=== PATIENT | male | born 1985 | race Caucasian/White ===

== ENCOUNTER 2018-01-11 08:33 | Emergency (ER) | payer MEDICAID ==
[~2018-01-11] VITALS: Ht 177.8 cm; Wt 77.6 kg
[2018-01-11 09:24] LABS: BASOPHIL % 0.8 % (0-2); PLATELET COUNT 235 x10^3mcL (130-400); RED CELL DISTRIBUTION WIDTH 13.1 % (11.5-14.5)
[2018-01-11 09:39] LABS: CALCIUM 8.9 mg/dL (8.5-10.1); CARBON DIOXIDE 25.2 mmol/L (21-32); CHLORIDE SERUM 104 mmol/L (98-107); GFR1 > 60 mL/min; GLUCOSE SERUM 100 mg/dL (74-106); POTASSIUM SERUM 3.8 mmol/L (3.5-5.1); SODIUM SERUM 139 mmol/L (136-145)
[2018-01-11 09:48] LABS: ALBUMIN 4.1 g/dL (3.4-5.0); ALKALINE PHOSPHATASE 161 U/L (46-116); AMYLASE 60 U/L (25-115); AST/SGOT 691 U/L (15-37); BILIRUBIN TOTAL 1.1 mg/dL (0.20-1.00); LIPASE 164 IU/L (73-393)
[2018-01-11 09:58] LABS: ALT/SGPT 1040 U/L (16-63)
[2018-01-11 10:06] VITALS: BP 124/84
[2018-01-11 10:13] LABS: AMPHETAMINE QUAL UR NONE DETECTED (NEG <=1000)
== END 2018-01-11 11:00 | disposition home or self-care (01) ==
LOC: ED 08:33
PROVIDERS: Emergency Medicine
DX: K29.20 Alcoholic gastritis without bleeding (principal); F10.229 Alcohol dependence with intoxication, unspecified
CPT/HCPCS: 83880; J1885; J2405; J7030

== ENCOUNTER 2018-06-25 18:58 | Emergency (ER) | payer SELFPAY ==
[~2018-06-25] VITALS: Ht 177.8 cm; Wt 81.6 kg
[2018-06-25 19:22] VITALS: Ht 177.8 cm; Wt 81.6 kg
[2018-06-25 20:56] VITALS: BP 141/94
== END 2018-06-25 20:56 | disposition home or self-care (01) ==
LOC: ED 18:58
DX: S61.411A Laceration without foreign body of right hand, initial encounter (principal); K29.70 Gastritis, unspecified, without bleeding; W25.XXXA Contact with sharp glass, initial encounter; Y93.89 Activity, other specified; Y92.89 Other specified places as the place of occurrence of the external cause; Y99.8 Other external cause status
CPT/HCPCS: J2001